=== PATIENT | female | born 1985 | race African-American/Black ===

== ENCOUNTER 2017-05-28 16:07 | Emergency (ER) | payer OTHER ==
[~2017-05-28 16:07] MED LIST: FLEXERIL10 MG PO; MOTRIN400 MG PO; NAPROXEN PO; TYLENOL #3 PO
== END 2017-05-28 17:22 | disposition home or self-care (01) ==
LOC: CED 16:07 → CFTX 16:07
DX: L02.412 Cutaneous abscess of left axilla (principal); F17.210 Nicotine dependence, cigarettes, uncomplicated
CPT/HCPCS: 10060; 99283

== ENCOUNTER 2017-05-31 19:28 | Emergency (ER) | payer OTHER | END 2017-05-31 22:20 | disposition home or self-care (01) | LOC: CFTX 19:28 → CED 19:28 → CFTX 22:16 | DX: Z48.817 Encounter for surgical aftercare following surgery on the skin and subcutaneous tissue (principal); F17.200 Nicotine dependence, unspecified, uncomplicated | CPT/HCPCS: 99282 ==